=== PATIENT | male | born 1960 | race Caucasian/White ===

== ENCOUNTER 2020-09-13 12:11 | Emergency (ER) | payer MEDICAID ==
[~2020-09-13] VITALS: Ht 185.4 cm; Wt 92.3 kg
[2020-09-13 12:19] VITALS: BP 136/88
== END 2020-09-13 13:15 | disposition home or self-care (01) ==
LOC: ER 12:13
DX: U07.1 COVID-19 (principal); R05 Cough
CPT/HCPCS: 87635; 99283; C9803

== ENCOUNTER 2020-09-18 12:34 | Emergency (ER) | payer SELFPAY ==
[~2020-09-18] VITALS: Ht 185.4 cm; Wt 92.3 kg
[2020-09-18] MEDS ORDERED: normal saline 1000ml 1,000 ML IV ONE (12:50)
[2020-09-18 13:24] VITALS: BP 91/58
[2020-09-18 13:58] LABS: HEMOGLOBIN 15.8 g/dl (14.0-17.9)
[2020-09-18 14:00] LABS: BASOPHILS % (AUTO) 0.2 % (0-1); EOSINOPHILS % (AUTO) 0 % (0-6); HEMATOCRIT 47.4 % (42.0-52.0); LYMPHOCYTES # (AUTO) 1.9 X10'3 (1.1-4.8); LYMPHOCYTES % (AUTO) 27.6 % (21-51); MEAN CORPUSCULAR HEMOGLOBIN 30.4 PG (27.0-31.0); MEAN CORPUSCULAR HGB CONC 33.4 g/dL (33.0-36.5); MEAN CORPUSCULAR VOLUME 90.9 FL (78-98); MEAN PLATELET VOLUME 9.4 FL (7.4-10.4); MONOCYTES # (AUTO) 0.5 X10'3 (0-0.9); MONOCYTES % (AUTO) 7.3 % (2-12); NEUTROPHILS # (AUTO) 4.5 X10'3 (1.8-7.7); NEUTROPHILS % (AUTO) 64.9 % (42-75); PLATELET COUNT 153 X10'3 (140-440); RED BLOOD COUNT 5.21 X10'6 (4.70-6.10); WHITE BLOOD COUNT 6.9 X10'3 (4.5-11.0)
[2020-09-18 14:23] LABS: ALANINE AMINOTRANSFERASE 44 U/L (12-78); ALBUMIN 4.1 G/DL (3.4-5.0); ALKALINE PHOSPHATASE 59 IU/L (46-116); ANION GAP 12 (8-16); ASPARTATE AMINO TRANSFERASE 41 U/L (10-37); BILIRUBIN,TOTAL 0.7 MG/DL (0.1-1.0); BLOOD UREA NITROGEN 29 MG/DL (7-18); BUN/CREATININE RATIO 15.2 (5.4-32.0); CALCIUM 8.2 MG/DL (8.5-10.1); CHLORIDE 100 MMOL/L (99-107); CREATININE 1.91 MG/DL (0.60-1.10); GLUCOSE 128 MG/DL (70-104); POTASSIUM 4.3 MMOL/L (3.5-5.1); SODIUM 136 MMOL/L (135-145); TOTAL CARBON DIOXIDE 24.4 MMOL/L (24-32); TOTAL PROTEIN 8.1 G/DL (6.4-8.2); eGFR 36 ML/MIN
[2020-09-18 14:56] LABS: C-REACTIVE PROTEIN 1.93 MG/DL (0.0-0.5); MAGNESIUM 2.1 MG/DL (1.5-2.4)
[2020-09-18 14:57] LABS: FERRITIN 2418 NG/ML (26-388)
[2020-09-18] MEDS ORDERED: ONDA4TAB6 PO (16:47)
== END 2020-09-18 17:00 | disposition home or self-care (01) ==
LOC: ER 12:35
DX: U07.1 COVID-19 (principal); R53.83 Other fatigue; R50.9 Fever, unspecified; R19.7 Diarrhea, unspecified; R11.2 Nausea with vomiting, unspecified; R53.1 Weakness; Z88.0 Allergy status to penicillin
CPT/HCPCS: 36415; 71045; 80053; 82728; 83735; 84145; 85025; 86140; 93005; 96360; 96361; 99285; J7030